=== PATIENT | female | born 1990 | race Hispanic/Latino ===

== ENCOUNTER → 2016-07-17 | Outpatient (CLI) | payer MEDICAID, OTHER ==
--- NOTE | 2016-07-17 14:53 | REP ---
First trimester OB ultrasound 07/17/2016 Indication: viability Comparison: None Technique: Transabdominal ultrasound was performed of the abdomen. Color flow Doppler and M-mode imaging were used to evaluate the pelvis/fetus. Findings: Date of last menstrual period 05/30/2016. According to last menstrual period fetus should be 9-mdsj-4-day gestational age with SANTA 03/06/2017. At this time single intrauterine gestational sac containing a single pole with crown length measurement 0.2 cm corresponds to 0-nbkz-3-day gestational age by ultrasound. The pole, yolk sac and gestational sac are identified. heart rate is 111 beats per minute by M-mode. There is no subchorionic hemorrhage. The ovaries are visualized and color Doppler perfusion was noted to the bilateral ovaries, therefore no evidence of torsion. There is no free fluid in the cul-de-sac Impression Viable single intrauterine with fetus of 5-week 6 days size, with SANTA 03/13/2017 according to today's ultrasound. heart rate 111 beats per minute by M-mode No subchorionic hemorrhage. No free fluid in cul-de-sac Recommend routine anatomy screening ultrasound at 19-20 weeks gestational age Signed by Jayda Vega MD 07/17/2016 02:44 P
== END ==
LOC: M RAD 13:56
PROVIDERS: ATTEND Obstetrics & Gynecology
DX: Z36 Encounter for antenatal screening of mother (principal)

== ENCOUNTER 2016-07-31 14:17 | Emergency (ER) | payer MEDICAID ==
[2016-07-31] MEDS ORDERED: ONDANSETRON 4MG/2ML VIAL (J2405) As Ordered ONE (16:27)
[2016-07-31 16:35] LABS: MEAN CORPUSCULAR HEMOGLOBIN 28.8 pg (27.0-33.0); MEAN CORPUSCULAR HGB CONC 35.7 g/dl (32.0-36.5); MEAN CORPUSCULAR VOLUME 80.8 fl (80.0-96.0); RED CELL DISTRIBUTION WIDTH 12.3 % (11.5-14.5); WHITE BLOOD COUNT 3.7 K/mm3 (4.0-10.0)
--- NOTE | 2016-07-31 17:12 | REP ---
FIRST TRIMESTER ULTRASOUND: Real-time sonographic evaluation of the gravid uterus performed utilizing transabdominal technique. There is a single living intrauterine gestation with estimated gestational age 8 weeks 4 days based on a crown rump length of 20 mm, EDC 03/08/2017. heart rate 169 beats per minute. No subchorionic hemorrhage is seen. No maternal adnexal region abnormality is seen. Signed by Jason Adrian MD 08/03/2016 02:11 P
[2016-07-31] MEDS ORDERED: METOCLOPRAMIDE INJ 10MG/2ML VIAL (J2765) As Ordered ONE (18:15)
[2016-07-31] MEDS ORDERED: NITROFURANTOIN (MACROBID) 100 MG CAP As Ordered ONE (20:49)
--- NOTE | 2016-07-31 21:07 | EDDOCDS ---
Nurse's Notes [facility] Name: Gumaro Martinez Age: 26 yrs Sex: Female : 1990 Arrival Date: 07/31/2016 Time: 14:17 Bed 21 Private MD: NO PRIMARY PHYSICIAN, . Diagnosis: Mild hyperemesis gravidarum;Urinary tract infection, site not specified;Acute vaginitis Presentation: 07/31 14:36 Presenting complaint: Patient states: n/v/d x "several weeks" and cramping x 8 weeks. kc3 Pt reports vaginal bleeding when wiping x 2 days. Pt reports 8 weeks . Adult Sepsis Screening: The patient does not have new or worsening altered mentation. Patient's respiratory rate is less than 22. Systolic blood pressure is greater than 100. Patient has a qSOFA score of 0- Negative Sepsis Screen. Suicide/Homicide risk assessment- the patient denies having any suicidal and/or homicidal ideations and does not present with any other emotional, behavioral or mental health complaints. Status: Patient is not a access services representative or dependent. Transition of care: patient was not received from another setting of care. 14:36 Acuity: RAKEL Level 3 kc3 14:36 Method Of Arrival: Walkin/Carried/Asstd kc3 Triage Assessment: 14:39 General: Appears uncomfortable, Behavior is appropriate for age, cooperative. Pain: kc3 Location: pelvis Pain currently is 9 out of 10 on a pain scale. Pt Declines HIV testing. Respiratory: Reports shortness of breath at rest. GI: Abdomen is flat, Reports diarrhea, lower abdominal pain, nausea, vomiting. Derm: Skin is normal. 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 none - PMHx: Miscarriage; - PSHx: D & C; - Social history: Smoking status: Patient states was never smoker of tobacco. No barriers to communication noted, The patient speaks fluent [place], Speaks appropriately for age. - Family history: No immediate family members are acutely ill. - : The pt / caregiver states he / she is not on anticoagulants. Home medication list is obtained from the patient. - Exposure Risk Screening:: None identified. Screenin:04 Screening information is obtained from the patient. Fall risk: No risks identified. mb9 Assistance ADL's: requires no assistance with activities of daily living. Abuse/DV Screen: The patient / caregiver reports he/she is: not in a situation that causes fear, pain or injury. Nutritional screening: No deficits noted. Advance Directives: There is no active DNR order. home support is adequate. Assessment: 16:34 General: Appears uncomfortable, Behavior is appropriate for age, cooperative. Pain: mb9 Location: pelvis Pain currently is 5 out of 10 on a pain scale. Respiratory: Airway is patent Respiratory effort is even, unlabored. GI: Bowel sounds present X 4 quads. Abd is soft Abd is non tender Reports nausea, vomiting. 17:48 Reassessment: Patient states symptoms have not improved. General: Appears mb9 uncomfortable, Behavior is appropriate for age, cooperative. Respiratory: Airway is patent Respiratory effort is even, unlabored. GI: Reports nausea. 18:20 General: Pt reports no change in nausea. Pt medicated per orders. [place]on provided and ld5 lights dimmed for comfort. Will continue to monitor. 18:52 Reassessment: Patient states symptoms have not improved. General: Appears mb9 uncomfortable. Neurological: Reports pt states, "I feel like my heart is gonna beat out of chest and I'm gonna faint". Dr Rosario aware. . 20:20 Reassessment: Patient states symptoms have improved. General: Appears comfortable, mb9 Behavior is appropriate for age, cooperative, PT AMBULATED APPROXIMATELY 50 FT WITH NO APPARENT PROBLEM. . Respiratory: Airway is patent Respiratory effort is even, unlabored. 21:04 Reassessment: Patient appears in no apparent distress at this time. Patient states mb9 symptoms have improved. Adult Sepsis Screening: The patient does not have new or worsening altered mentation. Patient's respiratory rate is less than 22. Systolic blood pressure is greater than 100. Patient has a qSOFA score of 0- Negative Sepsis Screen. General: Appears in no apparent distress, comfortable, Behavior is appropriate for age, cooperative. General: Behavior is appropriate for age, cooperative. Respiratory: Airway is patent Respiratory effort is even, unlabored. Vital Signs: 14:19 BP 101 / 80; Pulse 135; Resp 18 S; Temp 97.9(O); Pulse Ox 93% on R/A; Weight 60.24 kg gr2 (M); Height 5 ft. 5 in. (165.10 cm) (R); Pain 8/10; 16:09 Pulse 140; jrd 18:06 BP 91 / 55 (auto/); ld5 18:12 Pulse Ox 99% ; ld5 18:20 Pulse 90; ld5 21:04 BP 105 / 63; Pulse 93; Resp 17; Temp 98.2(TE); Pulse Ox 99% on R/A; mb9 14:19 Body Mass Index 22.10 (60.24 kg, 165.10 cm) gr2 Vitals: 14:19 Log In Time: July 31, 2016 at 14:19. gr2 ED Course: 14:18 Patient visited by Joaquim Bro. gr2 14:18 Patient moved to Waiting gr2 14:19 NO PRIMARY PHYSICIAN, . is Private Physician. gr2 14:22 Patient visited by Joaquim Bro. gr2 14:22 Patient moved to Pre RCE gr2 14:38 Triage Initiated kc3 15:50 Patient moved to 21 js15 15:57 Joanna Hillman MD is Attending Physician. sd1 16:09 Patient visited by Bright Alemna PCA. jrd 16:21 Patient visited by Joanna Hillman MD. sd1 16:33 Patient moved to Ultrasound hgl 16:35 Inserted saline lock: 20 gauge in right antecubital area and blood collected. The mb9 patient tolerated the procedure well. 16:49 Patient moved to 21 hgl 17:48 Patient visited by Deven Tejada RN. mb9 17:48 [facility] Payment Agreement was scanned into [employer] and attached to record. gjb 18:00 US 1st trimester Returned. EDMS 18:04 Patient name changed from Charolyn\\S\\\\S\\Martinez\\S\\ to Charolyn\\S\\ \\S\\Martinez. EDMS 18:14 Patient visited by Hilaria Mathis RN. ld5 18:14 GC & Chlamydia Amplification Sent. ld5 18:14 Wet Prep Sent. ld5 18:21 Patient visited by Hilaria Mathis,ALIA. ld5 18:21 Assist provider with pelvic exam: Set up pelvic tray. Specimens sent to lab. Performed ld5 by Joanna Hillman MD Patient tolerated well. 19:04 Patient visited by Deven Tejada RN. mb9 19:19 Attending Physician role handed off by Joanna Hillman MD cs11 19:19 Holden Brewer DO is Attending Physician. cs11 21:04 The patient / caregiver is instructed regarding the plan of care and ED course. mb9 21:04 Discontinued IV lock intact, bleeding controlled, pressure dressing applied, No mb9 redness/swelling at site. Administered Medications: 16:33 Drug: Ondansetron 4 mg [ondansetron HCl 2 mg/mL intravenous solution (2 mL)] Route: mb9 IVP; Site: right antecubital; 17:47 Follow up: Response: Nausea is unchanged mb9 16:34 Drug: NS 0.9% 1000 ml [sodium chloride 0.9 % intravenous solution] Route: IV; Rate: mb9 bolus; Site: right antecubital; 17:47 Follow up: IV Intake: 1000ml mb9 17:46 Drug: NS 0.9% 1000 ml [sodium chloride 0.9 % intravenous solution] Route: IV; Rate: mb9 bolus; Site: right antecubital; 18:48 Follow up: IV Status: Completed infusion; IV Intake: 1000ml ld5 18:20 Drug: Metoclopramide 10 mg [metoclopramide 5 mg/mL injection solution] Route: IV; Rate: ld5 40 mg/hr; Infused Over: 15 mins; Site: right antecubital; 18:48 Follow up: IV Status: Completed infusion ld5 18:48 Drug: D5-NS 1000 ml [dextrose 5 % and 0.9 % sodium chloride intravenous solution] ld5 Route: IV; Rate: bolus; Site: right antecubital; 21:03 Drug: Nitrofurantoin 100 mg Route: PO; mb9 Point of Care Testing: Urine : 15:09 hCG Reading: Positive; Control Reading: Positive; srm Ranges: Intake: 17:47 IV: 1000.00ml; Total: 1000.00ml. mb9 18:48 IV: 1000.00ml; Total: 2000.00ml. ld5 20:21 PO: 360.00ml (Water); Total: 2360.00ml. mb9 Order Results: Lab Order: Hcg, Serum Quantitative; SPEC'M 07/31/16 16:24 Test: HCG, SERUM QUANTITATIVE; Value: [id number]; Units: MIU/ML; Status: F Test Note: ; GESTATIONAL AGE APPROXIMATE HCG RANGE (MIU/ML) 0.2-1 WEEK 5-50 1-2 WEEKS 50-500 2-3 WEEKS 100-5,000 3-4 WEEKS 500-10,000 4-5 WEEKS 1,000-50,000 5-6 WEEKS 10,000-100,000 6-8 WEEKS 15,000-200,000 2-3 MONTHS 10,000-100,000 NON FEMALES LESS THAN 3.0 Patient samples may contain human heterophilic antibodies that could react with immunoassays to give falsely elevated or depressed results. This assay has been designed to minimize interference from heterophilic antibodies. Elevated hCG levels have also been associated with trophoblastic disease and nontrophoblastic neoplasms. The possibility of having these diseases should be considered before a diagnosis of is made. This test is not intended for use as a surrogate marker for aiding in the diagnosis or monitoring the treatment of cancer patients. Siemens Cebix methodology. Lab Order: Type & Screen; SPEC'M 07/31/16 16:24 Test: BLOOD TYPE; Value: O POS; Status: F Test: AB SCREEN (INDIRECT BARBI)GEL; Value: NEGATIVE; Status: F Lab Order: CBC; SPEC'M 07/31/16 16:24 Test: WHITE BLOOD COUNT; Value: 3.7; Range: 4.0-10.0; Abnormal: Below low normal; Units: K/mm3; Status: F Test: RED BLOOD COUNT; Value: 5.23; Range: 4.00-5.40; Units: M/mm3; Status: F Test: HEMOGLOBIN; Value: 15.1; Range: 12.0-16.0; Units: g/dl; Status: F Test: HEMATOCRIT; Value: 42.2; Range: 36.0-47.0; Units: %; Status: F Test: MEAN CORPUSCULAR VOLUME; Value: 80.8; Range: 80.0-96.0; Units: fl; Status: F Test: MEAN CORPUSCULAR HEMOGLOBIN; Value: 28.8; Range: 27.0-33.0; Units: pg; Status: F Test: MEAN CORPUSCULAR HGB CONC; Value: 35.7; Range: 32.0-36.5; Units: g/dl; Status: F Test: RED CELL DISTRIBUTION WIDTH; Value: 12.3; Range: 11.5-14.5; Units: %; Status: F Test: PLATELET COUNT, AUTOMATED; Value: 335; Range: 150-450; Units: k/mm3; Status: F Lab Order: Wet Prep; SPEC'M 07/31/16 18:11 Test: WET PREP; Value: WET PREP RESULT; Status: F Test: WET PREP; Value: FEW WBC; Status: F Test: WET PREP; Value: FEW RBC; Status: F Test: WET PREP; Value: FEW CLUE CELLS PRESENT; Status: F Test: WET PREP; Value: MODERATE SHORT RODS PRESENT; Status: F Lab Order: UA; SPEC'M 07/31/16 15:03 Test: APPEARANCE, URINE; Value: CLOUDY; Range: CLEAR; Abnormal: Above high normal; Status: F Test: COLOR, URINE; Value: BALDOMERO; Range: YELLOW; Status: F Test: PH,URINE; Value: 6.0; Range: 5.0-9.0; Units: UNITS; Status: F Test: SPECIFIC GRAVITY URINE AUTO; Value: 1.029; Range: 1.002-1.035; Status: F Test: PROTEIN, URINE AUTO; Value: 2+; Range: NEGATIVE; Abnormal: Above high normal; Units: mg/dL; Status: F Test: GLUCOSE, URINE (UA) AUTO; Value: NEGATIVE; Range: NEGATIVE; Units: mg/dL; Status: F Test: KETONE, URINE AUTO; Value: 2+; Range: NEGATIVE; Abnormal: Above high normal; Units: mg/dL; Status: F Test: UROBILINOGEN, URINE AUTO; Value: 2.0; Range: 0.0-2.0; Abnormal: Above high normal; Units: mg/dL; Status: F Test: BILIRUBIN, URINE AUTO; Value: 1+; Range: NEGATIVE; Abnormal: Above high normal; Status: F Test: NITRITE, URINE AUTO; Value: NEGATIVE; Range: NEGATIVE; Status: F Test: LEUKOCYTE ESTERASE, URINE AUTO; Value: 2+; Range: NEGATIVE; Abnormal: Above high normal; Status: F Test: BLOOD, URINE BLOOD; Value: NEGATIVE; Range: NEGATIVE; Status: F Test: WBC, URINE AUTO; Value: 31; Range: 0-3; Abnormal: Above high normal; Units: /HPF; Status: F Test: RBC, URINE AUTO; Value: 8; Range: 0-3; Abnormal: Above high normal; Units: /HPF; Status: F Test: BACTERIA, URINE AUTO; Value: 1+; Range: NEGATIVE; Abnormal: Above high normal; Status: F Test: SQUAMOUS EPITHELIAL CELL UR AU; Value: 28; Range: 0-6; Units: /HPF; Status: F Test: MUCUS, URINE; Value: LARGE; Range: NEGATIVE; Status: F Test: HYALINE CAST, URINE AUTO; Value: 5; Range: 0-1; Units: /LPF; Status: F Radiology Order: US 1st trimester Test: US 1st trimester REASON FOR EXAMINATION: VB/abd pain; FIRST TRIMESTER ULTRASOUND:; ; Real-time sonographic evaluation of the gravid uterus performed utilizing; transabdominal technique.; ; There is a single living intrauterine gestation with estimated gestational age 8; weeks 4 days based on a crown rump length of 20 mm, EDC 03/08/2017. heart; rate 169 beats per minute. No subchorionic hemorrhage is seen. No maternal; adnexal region abnormality is seen.; ; ; ; Unreviewed; Outcome: 20:38 Discharge ordered by Provider. cs11 21:04 Discharge Assessment: Patient awake, alert and oriented x 3. No cognitive and/or mb9 functional deficits noted. Patient verbalized understanding of disposition instructions. patient administered narcotics - no. The following High Risk Discharge criteria are identified: None. Discharged to home ambulatory. Condition: good Condition: stable Condition: improved. Discharge instructions given to patient, family, Instructed on discharge instructions, follow up and referral plans. medication usage, diet, Demonstrated understanding of instructions, medications, Pt was receptive of discharge instructions/ teaching. Prescriptions given X 3. Ultrasound Study completed. Property :Personal belongings accompany Pt. 21:06 Patient left the ED. mb9 Signatures: Dispatcher [employer] EDJoanna Ordonez MD MD sd1 Eveline Hook RN RN srm Dickerson, Laura, RN RN ld5 Robert Lara Craig, DO DO cs11 Joaquim Bro gr2 Bright Aleman, NUCLEAR REACTOR OPERATOR NUCLEAR REACTOR OPERATOR jrd Deven Tejada,RN RN mb9 Tawanna Michael,RN RN js15 Claudette Newberry,RN RN kc3 Mavis Alexander MTDD
--- NOTE | 2016-07-31 21:07 | EDDOCDS ---
Physician Documentation [facility] Name: Gumaro Martinez Age: 26 yrs Sex: Female : 1990 Arrival Date: 07/31/2016 Time: 14:17 Bed 21 Private MD: NO PRIMARY PHYSICIAN, . Disposition: 07/31/16 20:38 Discharged to Home/Self Care. Impression: Mild hyperemesis gravidarum, Urinary tract infection, site not specified, Acute vaginitis. - Condition is Stable. - Discharge Instructions: First Trimester of , Eating Plan for Hyperemesis Gravidarum, First Trimester of , [id number], Bacterial Vaginosis, Bacterial Vaginosis, [id number]. - Prescriptions for Flagyl 500 mg Oral Tablet - take 1 tablet by ORAL route every 12 hours for 7 days; 14 tablet. Reglan 10 mg Oral Tablet - take 1 tablet by ORAL route every 6 hours take 30 minutes before meals and at bedtime; 20 tablet. Macrobid 100 mg Oral Capsule - take 100 milligram by ORAL route every 12 hours for 10 days; 20 capsule. - Medication Reconciliation, Local Pharmacy Hours form. - Follow up: Emergency Department; When: Call to arrange an appointment. - Problem is an ongoing problem. - Symptoms have improved. Historical: - Allergies: Toradol; - Home Meds: 1. none - PMHx: Miscarriage; - PSHx: D & C; - Social history: Smoking status: Patient states was never smoker of tobacco. No barriers to communication noted, The patient speaks fluent Swedish, Speaks appropriately for age. - Family history: No immediate family members are acutely ill. - : The pt / caregiver states he / she is not on anticoagulants. Home medication list is obtained from the patient. - Exposure Risk Screening:: None identified. 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 5 in. (165.10 cm) (R); Pain 8/10; 16:09 Pulse 140; jrd 18:06 BP 91 / 55 (auto/); ld5 18:12 Pulse Ox 99% ; ld5 18:20 Pulse 90; ld5 21:04 BP 105 / 63; Pulse 93; Resp 17; Temp 98.2(TE); Pulse Ox 99% on R/A; mb9 14:19 Body Mass Index 22.10 (60.24 kg, 165.10 cm) gr2 MDM: 14:43 UCG by Nursing ordered. dt4 15:50 Hcg, Serum Quantitative Ordered. EDMS 15:51 CBC Ordered. EDMS 15:51 Type & Screen Ordered. EDMS 16:18 IV Saline Lock ordered. sd1 16:18 NS 0.9% 1000 ml IV at bolus once ordered. sd1 16:20 Ondansetron 4 mg IVP once ordered. sd1 16:21 Set up pelvic ordered. sd1 16:21 US 1st trimester Ordered. EDMS 16:22 GC & Chlamydia Amplification Ordered. EDMS 16:22 Wet Prep Ordered. EDMS 16:53 CBC Reviewed. sd1 16:54 NS 0.9% 1000 ml IV at bolus once ordered. sd1 17:06 D5-NS 1000 ml IV at bolus once ordered. sd1 17:19 Hcg, Serum Quantitative Reviewed. sd1 17:46 Type & Screen Reviewed. sd1 17:48 [facility] [place] Payment Agreement was scanned into [employer] and attached to record. gjb 17:49 Financial registration complete. gjb 18:03 Metoclopramide 10 mg IV at 40 mg/hr once over 15 mins ordered. sd1 18:21 US 1st trimester Reviewed. sd1 18:23 UA Ordered. EDMS 18:23 Urine Culture Ordered. EDMS 18:45 UA Reviewed. sd1 18:45 Wet Prep Reviewed. sd1 18:49 Fluid Challenge ordered. sd1 20:07 Nitrofurantoin 100 mg PO once ordered. cs11 20:08 Ambulate Patient to Assess Patient Safety ordered. cs11 Point of Care Testing: Urine : 15:09 hCG Reading: Positive; Control Reading: Positive; srm Ranges: Administered Medications: 16:33 Drug: Ondansetron 4 mg [ondansetron HCl 2 mg/mL intravenous solution (2 mL)] Route: mb9 IVP; Site: right antecubital; 17:47 Follow up: Response: Nausea is unchanged mb9 16:34 Drug: NS 0.9% 1000 ml [sodium chloride 0.9 % intravenous solution] Route: IV; Rate: mb9 bolus; Site: right antecubital; 17:47 Follow up: IV Intake: 1000ml mb9 17:46 Drug: NS 0.9% 1000 ml [sodium chloride 0.9 % intravenous solution] Route: IV; Rate: mb9 bolus; Site: right antecubital; 18:48 Follow up: IV Status: Completed infusion; IV Intake: 1000ml ld5 18:20 Drug: Metoclopramide 10 mg [metoclopramide 5 mg/mL injection solution] Route: IV; Rate: ld5 40 mg/hr; Infused Over: 15 mins; Site: right antecubital; 18:48 Follow up: IV Status: Completed infusion ld5 18:48 Drug: D5-NS 1000 ml [dextrose 5 % and 0.9 % sodium chloride intravenous solution] ld5 Route: IV; Rate: bolus; Site: right antecubital; 21:03 Drug: Nitrofurantoin 100 mg Route: PO; mb9 Signatures: Dispatcher [employer] EDJoanna Ordonez MD MD sd1 Holden Brewer DO DO cs11 Regina Leija PA-C PA-C dt4 Deven Tejada RN RN mb9 Claudette Newberry RN RN [id number] Mavis Alexander Laura RN ld5 The chart was reviewed and I authenticate all verbal orders and agree with the evaluation and treatment provided.Attachments: 17:48 [facility] Payment Agreement mindy MTDD
--- NOTE | 2016-08-02 22:07 | EDDOCDS ---
Physician Documentation [facility] Name: Gumaro Martinez Age: 26 yrs Sex: Female : 1990 Arrival Date: 07/31/2016 Time: 14:17 Bed 21 Private MD: NO PRIMARY PHYSICIAN, . Disposition: 07/31/16 20:38 Discharged to Home/Self Care. Impression: Mild hyperemesis gravidarum, Urinary tract infection, site not specified, Acute vaginitis. - Condition is Stable. - Discharge Instructions: First Trimester of , Eating Plan for Hyperemesis Gravidarum, First Trimester of , Hzhu-[id number], Bacterial Vaginosis, Bacterial Vaginosis, Uppy-kh-Rbbd. - Prescriptions for Flagyl 500 mg Oral Tablet - take 1 tablet by ORAL route every 12 hours for 7 days; 14 tablet. Reglan 10 mg Oral Tablet - take 1 tablet by ORAL route every 6 hours take 30 minutes before meals and at bedtime; 20 tablet. Macrobid 100 mg Oral Capsule - take 100 milligram by ORAL route every 12 hours for 10 days; 20 capsule. - Medication Reconciliation, Local Pharmacy Hours form. - Follow up: Emergency Department; When: Call to arrange an appointment. - Problem is an ongoing problem. - Symptoms have improved. Historical: - Allergies: Toradol; - Home Meds: 1. none - PMHx: Miscarriage; - PSHx: D & C; - Social history: Smoking status: Patient states was never smoker of tobacco. No barriers to communication noted, The patient speaks fluent Amharic, Speaks appropriately for age. - Family history: No immediate family members are acutely ill. - : The pt / caregiver states he / she is not on anticoagulants. Home medication list is obtained from the patient. - Exposure Risk Screening:: None identified. 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 5 in. (165.10 cm) (R); Pain 8/10; 16:09 Pulse 140; jrd 18:06 BP 91 / 55 (auto/); ld5 18:12 Pulse Ox 99% ; ld5 18:20 Pulse 90; ld5 21:04 BP 105 / 63; Pulse 93; Resp 17; Temp 98.2(TE); Pulse Ox 99% on R/A; mb9 14:19 Body Mass Index 22.10 (60.24 kg, 165.10 cm) gr2 MDM: 14:43 UCG by Nursing ordered. dt4 15:50 Hcg, Serum Quantitative Ordered. EDMS 15:51 CBC Ordered. EDMS 15:51 Type & Screen Ordered. EDMS 16:18 IV Saline Lock ordered. sd1 16:18 NS 0.9% 1000 ml IV at bolus once ordered. sd1 16:20 Ondansetron 4 mg IVP once ordered. sd1 16:21 Set up pelvic ordered. sd1 16:21 US 1st trimester Ordered. EDMS 16:22 GC & Chlamydia Amplification Ordered. EDMS 16:22 Wet Prep Ordered. EDMS 16:53 CBC Reviewed. sd1 16:54 NS 0.9% 1000 ml IV at bolus once ordered. sd1 17:06 D5-NS 1000 ml IV at bolus once ordered. sd1 17:19 Hcg, Serum Quantitative Reviewed. sd1 17:46 Type & Screen Reviewed. sd1 17:48 [facility] Payment Agreement was scanned into ITema and attached to record. gjb 17:49 Financial registration complete. gjb 18:03 Metoclopramide 10 mg IV at 40 mg/hr once over 15 mins ordered. sd1 18:21 US 1st trimester Reviewed. sd1 18:23 UA Ordered. EDMS 18:23 Urine Culture Ordered. EDMS 18:45 UA Reviewed. sd1 18:45 Wet Prep Reviewed. sd1 18:49 Fluid Challenge ordered. sd1 20:07 Nitrofurantoin 100 mg PO once ordered. cs11 20:08 Ambulate Patient to Assess Patient Safety ordered. cs11 08/01 08:01 T-Sheet-- Draft Copy was scanned into ITema and attached to record. gb Point of Care Testing: Urine : 07/31 15:09 hCG Reading: Positive; Control Reading: Positive; srm Ranges: Administered Medications: 16:33 Drug: Ondansetron 4 mg [ondansetron HCl 2 mg/mL intravenous solution (2 mL)] Route: mb9 IVP; Site: right antecubital; 17:47 Follow up: Response: Nausea is unchanged mb9 16:34 Drug: NS 0.9% 1000 ml [sodium chloride 0.9 % intravenous solution] Route: IV; Rate: mb9 bolus; Site: right antecubital; 17:47 Follow up: IV Intake: 1000ml mb9 17:46 Drug: NS 0.9% 1000 ml [sodium chloride 0.9 % intravenous solution] Route: IV; Rate: mb9 bolus; Site: right antecubital; 18:48 Follow up: IV Status: Completed infusion; IV Intake: 1000ml ld5 18:20 Drug: Metoclopramide 10 mg [metoclopramide 5 mg/mL injection solution] Route: IV; Rate: ld5 40 mg/hr; Infused Over: 15 mins; Site: right antecubital; 18:48 Follow up: IV Status: Completed infusion ld5 18:48 Drug: D5-NS 1000 ml [dextrose 5 % and 0.9 % sodium chloride intravenous solution] ld5 Route: IV; Rate: bolus; Site: right antecubital; 21:07 Follow up: IV Intake: 1000ml mb9 21:03 Drug: Nitrofurantoin 100 mg Route: PO; mb9 Signatures: Dispatcher MedHost EDMS Joanna Hillman MD MD sd1 Skylar Her, Holden Guerra DO DO cs11 Regina Leija, PA-C PA-C dt4 Deven Tejada RN RN mb9 Claudette Newberry RN RN kc3 Mavis Alexanderb Hilaria Mathis RN ld5 The chart was reviewed and I authenticate all verbal orders and agree with the evaluation and treatment provided.Attachments: 17:48 [facility] Payment Agreement gjb 08/01 08:01 T-Sheet-- Draft Copy gb Chart Complete MTDD
--- NOTE | 2016-08-02 22:07 | EDDOCDS ---
Physician Documentation [facility] Name: Gumaro Martinez Age: 26 yrs Sex: Female : 1990 Arrival Date: 07/31/2016 Time: 14:17 Bed 21 Private MD: NO PRIMARY PHYSICIAN, . Disposition: 07/31/16 20:38 Discharged to Home/Self Care. Impression: Mild hyperemesis gravidarum, Urinary tract infection, site not specified, Acute vaginitis. - Condition is Stable. - Discharge Instructions: First Trimester of , Eating Plan for Hyperemesis Gravidarum, First Trimester of , Luzi-el-Tild, Bacterial Vaginosis, Bacterial Vaginosis, Zptx-mh-[id number]. - Prescriptions for Flagyl 500 mg Oral Tablet - take 1 tablet by ORAL route every 12 hours for 7 days; 14 tablet. Reglan 10 mg Oral Tablet - take 1 tablet by ORAL route every 6 hours take 30 minutes before meals and at bedtime; 20 tablet. Macrobid 100 mg Oral Capsule - take 100 milligram by ORAL route every 12 hours for 10 days; 20 capsule. - Medication Reconciliation, Local Pharmacy Hours form. - Follow up: Emergency Department; When: Call to arrange an appointment. - Problem is an ongoing problem. - Symptoms have improved. Historical: - Allergies: Toradol; - Home Meds: 1. none - PMHx: Miscarriage; - PSHx: D & C; - Social history: Smoking status: Patient states was never smoker of tobacco. No barriers to communication noted, The patient speaks fluent Estonian, Speaks appropriately for age. - Family history: No immediate family members are acutely ill. - : The pt / caregiver states he / she is not on anticoagulants. Home medication list is obtained from the patient. - Exposure Risk Screening:: None identified. 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 5 in. (165.10 cm) (R); Pain 8/10; 16:09 Pulse 140; jrd 18:06 BP 91 / 55 (auto/); ld5 18:12 Pulse Ox 99% ; ld5 18:20 Pulse 90; ld5 21:04 BP 105 / 63; Pulse 93; Resp 17; Temp 98.2(TE); Pulse Ox 99% on R/A; mb9 14:19 Body Mass Index 22.10 (60.24 kg, 165.10 cm) gr2 MDM: 14:43 UCG by Nursing ordered. dt4 15:50 Hcg, Serum Quantitative Ordered. EDMS 15:51 CBC Ordered. EDMS 15:51 Type & Screen Ordered. EDMS 16:18 IV Saline Lock ordered. sd1 16:18 NS 0.9% 1000 ml IV at bolus once ordered. sd1 16:20 Ondansetron 4 mg IVP once ordered. sd1 16:21 Set up pelvic ordered. sd1 16:21 US 1st trimester Ordered. EDMS 16:22 GC & Chlamydia Amplification Ordered. EDMS 16:22 Wet Prep Ordered. EDMS 16:53 CBC Reviewed. sd1 16:54 NS 0.9% 1000 ml IV at bolus once ordered. sd1 17:06 D5-NS 1000 ml IV at bolus once ordered. sd1 17:19 Hcg, Serum Quantitative Reviewed. sd1 17:46 Type & Screen Reviewed. sd1 17:48 [facility] Payment Agreement was scanned into Psydex and attached to record. gjb 17:49 Financial registration complete. gjb 18:03 Metoclopramide 10 mg IV at 40 mg/hr once over 15 mins ordered. sd1 18:21 US 1st trimester Reviewed. sd1 18:23 UA Ordered. EDMS 18:23 Urine Culture Ordered. EDMS 18:45 UA Reviewed. sd1 18:45 Wet Prep Reviewed. sd1 18:49 Fluid Challenge ordered. sd1 20:07 Nitrofurantoin 100 mg PO once ordered. cs11 20:08 Ambulate Patient to Assess Patient Safety ordered. cs11 08/01 08:01 T-Sheet-- Draft Copy was scanned into Psydex and attached to record. gb Point of Care Testing: Urine : 07/31 15:09 hCG Reading: Positive; Control Reading: Positive; srm Ranges: Administered Medications: 16:33 Drug: Ondansetron 4 mg [ondansetron HCl 2 mg/mL intravenous solution (2 mL)] Route: mb9 IVP; Site: right antecubital; 17:47 Follow up: Response: Nausea is unchanged mb9 16:34 Drug: NS 0.9% 1000 ml [sodium chloride 0.9 % intravenous solution] Route: IV; Rate: mb9 bolus; Site: right antecubital; 17:47 Follow up: IV Intake: 1000ml mb9 17:46 Drug: NS 0.9% 1000 ml [sodium chloride 0.9 % intravenous solution] Route: IV; Rate: mb9 bolus; Site: right antecubital; 18:48 Follow up: IV Status: Completed infusion; IV Intake: 1000ml ld5 18:20 Drug: Metoclopramide 10 mg [metoclopramide 5 mg/mL injection solution] Route: IV; Rate: ld5 40 mg/hr; Infused Over: 15 mins; Site: right antecubital; 18:48 Follow up: IV Status: Completed infusion ld5 18:48 Drug: D5-NS 1000 ml [dextrose 5 % and 0.9 % sodium chloride intravenous solution] ld5 Route: IV; Rate: bolus; Site: right antecubital; 21:07 Follow up: IV Intake: 1000ml mb9 21:03 Drug: Nitrofurantoin 100 mg Route: PO; mb9 Signatures: Dispatcher MedHost EDMS Joanna Hillman MD MD sd1 Skylar Her, Holden Guerra DO DO cs11 eRgina Leija, PA-C PA-C dt4 Deven Tejada RN RN mb9 Claudette Newberry RN RN kc3 Mavis Alexanderb Hilaria Mathis RN ld5 The chart was reviewed and I authenticate all verbal orders and agree with the evaluation and treatment provided.Attachments: 17:48 [facility] Payment Agreement gjb 08/01 08:01 T-Sheet-- Draft Copy gb Chart Complete MTDD
--- NOTE | 2016-08-02 22:07 | EDDOCDS ---
Nurse's Notes [facility] Name: Gumaro Martinez Age: 26 yrs Sex: Female : 1990 Arrival Date: 07/31/2016 Time: 14:17 Bed 21 Private MD: NO PRIMARY PHYSICIAN, . Diagnosis: Mild hyperemesis gravidarum;Urinary tract infection, site not specified;Acute vaginitis Presentation: 07/31 14:36 Presenting complaint: Patient states: n/v/d x "several weeks" and cramping x 8 weeks. kc3 Pt reports vaginal bleeding when wiping x 2 days. Pt reports 8 weeks . Adult Sepsis Screening: The patient does not have new or worsening altered mentation. Patient's respiratory rate is less than 22. Systolic blood pressure is greater than 100. Patient has a qSOFA score of 0- Negative Sepsis Screen. Suicide/Homicide risk assessment- the patient denies having any suicidal and/or homicidal ideations and does not present with any other emotional, behavioral or mental health complaints. 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 Transition of care: patient was not received from another setting of care. 14:36 Acuity: RAKEL Level 3 kc3 14:36 Method Of Arrival: Walkin/Carried/Asstd kc3 Triage Assessment: 14:39 General: Appears uncomfortable, Behavior is appropriate for age, cooperative. Pain: kc3 Location: pelvis Pain currently is 9 out of 10 on a pain scale. Pt Declines HIV testing. Respiratory: Reports shortness of breath at rest. GI: Abdomen is flat, Reports diarrhea, lower abdominal pain, nausea, vomiting. Derm: Skin is normal. 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 none - PMHx: Miscarriage; - PSHx: D & C; - Social history: Smoking status: Patient states was never smoker of tobacco. No barriers to communication noted, The patient speaks fluent Sri Lankan, Speaks appropriately for age. - Family history: No immediate family members are acutely ill. - : The pt / caregiver states he / she is not on anticoagulants. Home medication list is obtained from the patient. - Exposure Risk Screening:: None identified. Screenin:04 Screening information is obtained from the patient. Fall risk: No risks identified. mb9 Assistance ADL's: requires no assistance with activities of daily living. Abuse/DV Screen: The patient / caregiver reports he/she is: not in a situation that causes fear, pain or injury. Nutritional screening: No deficits noted. Advance Directives: There is no active DNR order. home support is adequate. Assessment: 16:34 General: Appears uncomfortable, Behavior is appropriate for age, cooperative. Pain: mb9 Location: pelvis Pain currently is 5 out of 10 on a pain scale. Respiratory: Airway is patent Respiratory effort is even, unlabored. GI: Bowel sounds present X 4 quads. Abd is soft Abd is non tender Reports nausea, vomiting. 17:48 Reassessment: Patient states symptoms have not improved. General: Appears mb9 uncomfortable, Behavior is appropriate for age, cooperative. Respiratory: Airway is patent Respiratory effort is even, unlabored. GI: Reports nausea. 18:20 General: Pt reports no change in nausea. Pt medicated per orders. [place] provided and ld5 lights dimmed for comfort. Will continue to monitor. 18:52 Reassessment: Patient states symptoms have not improved. General: Appears mb9 uncomfortable. Neurological: Reports pt states, "I feel like my heart is gonna beat out of chest and I'm gonna faint". Dr Rosario aware. . 20:20 Reassessment: Patient states symptoms have improved. General: Appears comfortable, mb9 Behavior is appropriate for age, cooperative, PT AMBULATED APPROXIMATELY 50 FT WITH NO APPARENT PROBLEM. . Respiratory: Airway is patent Respiratory effort is even, unlabored. 21:04 Reassessment: Patient appears in no apparent distress at this time. Patient states mb9 symptoms have improved. Adult Sepsis Screening: The patient does not have new or worsening altered mentation. Patient's respiratory rate is less than 22. Systolic blood pressure is greater than 100. Patient has a qSOFA score of 0- Negative Sepsis Screen. General: Appears in no apparent distress, comfortable, Behavior is appropriate for age, cooperative. General: Behavior is appropriate for age, cooperative. Respiratory: Airway is patent Respiratory effort is even, unlabored. Vital Signs: 14:19 BP 101 / 80; Pulse 135; Resp 18 S; Temp 97.9(O); Pulse Ox 93% on R/A; Weight 60.24 kg gr2 (M); Height 5 ft. 5 in. (165.10 cm) (R); Pain 8/10; 16:09 Pulse 140; jrd 18:06 BP 91 / 55 (auto/); ld5 18:12 Pulse Ox 99% ; ld5 18:20 Pulse 90; ld5 21:04 BP 105 / 63; Pulse 93; Resp 17; Temp 98.2(TE); Pulse Ox 99% on R/A; mb9 14:19 Body Mass Index 22.10 (60.24 kg, 165.10 cm) gr2 Vitals: 14:19 Log In Time: July 31, 2016 at 14:19. gr2 ED Course: 14:18 Patient visited by Joaquim Bro. gr2 14:18 Patient moved to Waiting gr2 14:19 NO PRIMARY PHYSICIAN, . is Private Physician. gr2 14:22 Patient visited by Joaquim Bro. gr2 14:22 Patient moved to Pre RCE gr2 14:38 Triage Initiated kc3 15:50 Patient moved to 21 js15 15:57 Joanna Hillman MD is Attending Physician. sd1 16:09 Patient visited by Bright Aleman PCA. jrd 16:21 Patient visited by Joanna Hillman MD. sd1 16:33 Patient moved to Ultrasound hgl 16:35 Inserted saline lock: 20 gauge in right antecubital area and blood collected. The mb9 patient tolerated the procedure well. 16:49 Patient moved to 21 hgl 17:48 Patient visited by Deven Tejada RN. mb9 17:48 [facility] Payment Agreement was scanned into FirstString and attached to record. gjb 18:00 US 1st trimester Returned. EDMS 18:04 Patient name changed from Charolyn\\S\\\\S\\Martinez\\S\\ to Charolyn\\S\\ \\S\\Martinez. EDMS 18:14 Patient visited by Hilaria Mathis RN. ld5 18:14 GC & Chlamydia Amplification Sent. ld5 18:14 Wet Prep Sent. ld5 18:21 Patient visited by Hilaria Mathis,ALIA. ld5 18:21 Assist provider with pelvic exam: Set up pelvic tray. Specimens sent to lab. Performed ld5 by Joanna Hillman MD Patient tolerated well. 19:04 Patient visited by Deven Tejada RN. mb9 19:19 Attending Physician role handed off by Joanna Hillman MD cs11 19:19 Holden Brewer DO is Attending Physician. cs11 21:04 The patient / caregiver is instructed regarding the plan of care and ED course. mb9 21:04 Discontinued IV lock intact, bleeding controlled, pressure dressing applied, No mb9 redness/swelling at site. 08/01 08:01 T-Sheet-- Draft Copy was scanned into FirstString and attached to record. gb Administered Medications: 07/31 16:33 Drug: Ondansetron 4 mg [ondansetron HCl 2 mg/mL intravenous solution (2 mL)] Route: mb9 IVP; Site: right antecubital; 17:47 Follow up: Response: Nausea is unchanged mb9 16:34 Drug: NS 0.9% 1000 ml [sodium chloride 0.9 % intravenous solution] Route: IV; Rate: mb9 bolus; Site: right antecubital; 17:47 Follow up: IV Intake: 1000ml mb9 17:46 Drug: NS 0.9% 1000 ml [sodium chloride 0.9 % intravenous solution] Route: IV; Rate: mb9 bolus; Site: right antecubital; 18:48 Follow up: IV Status: Completed infusion; IV Intake: 1000ml ld5 18:20 Drug: Metoclopramide 10 mg [metoclopramide 5 mg/mL injection solution] Route: IV; Rate: ld5 40 mg/hr; Infused Over: 15 mins; Site: right antecubital; 18:48 Follow up: IV Status: Completed infusion ld5 18:48 Drug: D5-NS 1000 ml [dextrose 5 % and 0.9 % sodium chloride intravenous solution] ld5 Route: IV; Rate: bolus; Site: right antecubital; 21:07 Follow up: IV Intake: 1000ml mb9 21:03 Drug: Nitrofurantoin 100 mg Route: PO; mb9 Point of Care Testing: Urine : 15:09 hCG Reading: Positive; Control Reading: Positive; srm Ranges: Intake: 17:47 IV: 1000.00ml; Total: 1000.00ml. mb9 18:48 IV: 1000.00ml; Total: 2000.00ml. ld5 20:21 PO: 360.00ml (Water); Total: 2360.00ml. mb9 21:07 IV: 1000.00ml; Total: 3360.00ml. mb9 Order Results: Lab Order: Hcg, Serum Quantitative; [facility] 07/31/16 16:24 Test: HCG, SERUM QUANTITATIVE; Value: [id number]; Units: MIU/ML; Status: F Test Note: ; GESTATIONAL AGE APPROXIMATE HCG RANGE (MIU/ML) 0.2-1 WEEK 5-50 1-2 WEEKS 50-500 2-3 WEEKS 100-5,000 3-4 WEEKS 500-10,000 4-5 WEEKS 1,000-50,000 5-6 WEEKS 10,000-100,000 6-8 WEEKS 15,000-200,000 2-3 MONTHS 10,000-100,000 NON FEMALES LESS THAN 3.0 Patient samples may contain human heterophilic antibodies that could react with immunoassays to give falsely elevated or depressed results. This assay has been designed to minimize interference from heterophilic antibodies. Elevated hCG levels have also been associated with trophoblastic disease and nontrophoblastic neoplasms. The possibility of having these diseases should be considered before a diagnosis of is made. This test is not intended for use as a surrogate marker for aiding in the diagnosis or monitoring the treatment of cancer patients. Siemens Sypherlink methodology. Lab Order: Type & Screen; [facility] 07/31/16 16:24 Test: BLOOD TYPE; Value: O POS; Status: F Test: AB SCREEN (INDIRECT BARBI)GEL; Value: NEGATIVE; Status: F Lab Order: CBC; [facility] 07/31/16 16:24 Test: WHITE BLOOD COUNT; Value: 3.7; Range: 4.0-10.0; Abnormal: Below low normal; Units: K/mm3; Status: F Test: RED BLOOD COUNT; Value: 5.23; Range: 4.00-5.40; Units: M/mm3; Status: F Test: HEMOGLOBIN; Value: 15.1; Range: 12.0-16.0; Units: g/dl; Status: F Test: HEMATOCRIT; Value: 42.2; Range: 36.0-47.0; Units: %; Status: F Test: MEAN CORPUSCULAR VOLUME; Value: 80.8; Range: 80.0-96.0; Units: fl; Status: F Test: MEAN CORPUSCULAR HEMOGLOBIN; Value: 28.8; Range: 27.0-33.0; Units: pg; Status: F Test: MEAN CORPUSCULAR HGB CONC; Value: 35.7; Range: 32.0-36.5; Units: g/dl; Status: F Test: RED CELL DISTRIBUTION WIDTH; Value: 12.3; Range: 11.5-14.5; Units: %; Status: F Test: PLATELET COUNT, AUTOMATED; Value: 335; Range: 150-450; Units: k/mm3; Status: F Lab Order: GC & Chlamydia Amplification; SPEC'M 07/31/16 18:11 Test: CHLAMYDIA DNA AMPLIFICATION; Value: NEGATIVE; Range: NEGATIVE; Status: F Test: GC DNA AMPLIFICATION; Value: NEGATIVE; Range: NEGATIVE; Status: F Lab Order: Wet Prep; SPEC'M 07/31/16 18:11 Test: WET PREP; Value: WET PREP RESULT; Status: F Test: WET PREP; Value: FEW WBC; Status: F Test: WET PREP; Value: FEW RBC; Status: F Test: WET PREP; Value: FEW CLUE CELLS PRESENT; Status: F Test: WET PREP; Value: MODERATE SHORT RODS PRESENT; Status: F Lab Order: UA; SPEC'M 07/31/16 15:03 Test: APPEARANCE, URINE; Value: CLOUDY; Range: CLEAR; Abnormal: Above high normal; Status: F Test: COLOR, URINE; Value: BALDOMERO; Range: YELLOW; Status: F Test: PH,URINE; Value: 6.0; Range: 5.0-9.0; Units: UNITS; Status: F Test: SPECIFIC GRAVITY URINE AUTO; Value: 1.029; Range: 1.002-1.035; Status: F Test: PROTEIN, URINE AUTO; Value: 2+; Range: NEGATIVE; Abnormal: Above high normal; Units: mg/dL; Status: F Test: GLUCOSE, URINE (UA) AUTO; Value: NEGATIVE; Range: NEGATIVE; Units: mg/dL; Status: F Test: KETONE, URINE AUTO; Value: 2+; Range: NEGATIVE; Abnormal: Above high normal; Units: mg/dL; Status: F Test: UROBILINOGEN, URINE AUTO; Value: 2.0; Range: 0.0-2.0; Abnormal: Above high normal; Units: mg/dL; Status: F Test: BILIRUBIN, URINE AUTO; Value: 1+; Range: NEGATIVE; Abnormal: Above high normal; Status: F Test: NITRITE, URINE AUTO; Value: NEGATIVE; Range: NEGATIVE; Status: F Test: LEUKOCYTE ESTERASE, URINE AUTO; Value: 2+; Range: NEGATIVE; Abnormal: Above high normal; Status: F Test: BLOOD, URINE BLOOD; Value: NEGATIVE; Range: NEGATIVE; Status: F Test: WBC, URINE AUTO; Value: 31; Range: 0-3; Abnormal: Above high normal; Units: /HPF; Status: F Test: RBC, URINE AUTO; Value: 8; Range: 0-3; Abnormal: Above high normal; Units: /HPF; Status: F Test: BACTERIA, URINE AUTO; Value: 1+; Range: NEGATIVE; Abnormal: Above high normal; Status: F Test: SQUAMOUS EPITHELIAL CELL UR AU; Value: 28; Range: 0-6; Units: /HPF; Status: F Test: MUCUS, URINE; Value: LARGE; Range: NEGATIVE; Status: F Test: HYALINE CAST, URINE AUTO; Value: 5; Range: 0-1; Units: /LPF; Status: F Lab Order: Urine Culture; SPEC'M 07/31/16 15:03 Test: URINE CULTURE; Value: <EXTERNAL COMMENT eCWMed> FULL REPORT IN LAB NOTES (eCW and Medent).; Status: F Test: URINE CULTURE; Value: URINE CULTURE RESULT SPECIMEN APPEARS CONTAMINATED; Status: F Radiology Order: US 1st trimester Test: US 1st trimester REASON FOR EXAMINATION: VB/abd pain; FIRST TRIMESTER ULTRASOUND:; ; Real-time sonographic evaluation of the gravid uterus performed utilizing; transabdominal technique.; ; There is a single living intrauterine gestation with estimated gestational age 8; weeks 4 days based on a crown rump length of 20 mm, EDC 03/08/2017. heart; rate 169 beats per minute. No subchorionic hemorrhage is seen. No maternal; adnexal region abnormality is seen.; ; ; ; Unreviewed; Outcome: 20:38 Discharge ordered by Provider. cs11 21:04 Discharge Assessment: Patient awake, alert and oriented x 3. No cognitive and/or mb9 functional deficits noted. Patient verbalized understanding of disposition instructions. patient administered narcotics - no. The following High Risk Discharge criteria are identified: None. Discharged to home ambulatory. Condition: good Condition: stable Condition: improved. Discharge instructions given to patient, family, Instructed on discharge instructions, follow up and referral plans. medication usage, diet, Demonstrated understanding of instructions, medications, Pt was receptive of discharge instructions/ teaching. Prescriptions given X 3. Ultrasound Study completed. Property :Personal belongings accompany Pt. 21:06 Patient left the ED. mb9 Signatures: Dispatcher MedHost EDMS Joanna Hillman MD MD sd1 Eveline Hook, RN RN srm Arden, Skylar, Reg Reg gb Hilaria Mathis,RN RN ld5 Ly, Holden Limon DO DO cs11 Joaquim Bro gr2 Bright Aleman, SAURABH COTTON INSPECTOR Deven Espinosa,RN RN mb9 Tawanna Michael,RN RN js15 Claudette Newberry,RN RN kc3 Mavis Alexander Chart Complete NIDIA
== END 2016-07-31 21:06 | disposition home or self-care (01) ==
LOC: M ED 14:17
DX: O23.599 Infection of other part of genital tract in pregnancy, unspecified trimester (principal); O21.0 Mild hyperemesis gravidarum; O23.31 Infections of other parts of urinary tract in pregnancy, first trimester; Z88.6 Allergy status to analgesic agent
CPT/HCPCS: 36415; 76801; 81001; 81025; 84702; 85027; 86850; 86900; 86901; 87086; 87210; 87491; 87591; 96361; 96365; 96375; 99285; J2405; J2765